=== PATIENT | female | born 1965 ===

== ENCOUNTER 2023-01-07 15:00 | Emergency (ER) | payer MEDICARE, SELFPAY ==
[2023-01-07] MEDS ORDERED: Fentanyl 100 MCG/2 ML VIAL ONE (15:22)
[2023-01-07] MEDS ORDERED: HYDROcodone/Acetaminophen 5/325 mg Tablet ONE (15:59)
== END 2023-01-07 16:54 | disposition home or self-care (01) ==
LOC: BURERS 15:00
DX: M54.2 Cervicalgia (principal); M54.6 Pain in thoracic spine; W19.XXXA Unspecified fall, initial encounter
CPT/HCPCS: 70450; 71250; 72125; 96374; J3010

== ENCOUNTER 2023-05-15 17:25 | Emergency (ER) | payer MEDICARE ==
[2023-05-15] MEDS ORDERED: Fluorescein Opthalmic Strip ONE (17:37)
[2023-05-15] MEDS ORDERED: Tetracaine 0.5% PF 4 ML BOT ONE (17:37)
[2023-05-15] MEDS ORDERED: HYDROcodone/Acetaminophen 5/325 mg Tablet ONE (18:36)
[2023-05-15] MEDS ORDERED: Erythromycin Base 0.5% Ophth Oint 3.5 gm Tube ONE (19:59)
== END 2023-05-15 20:11 | disposition home or self-care (01) ==
LOC: BURERS 17:25
DX: H10.213 Acute toxic conjunctivitis, bilateral (principal)
CPT/HCPCS: 99283